=== PATIENT | female | born 1950 | race Asian ===

== ENCOUNTER 2017-01-18 06:17 | Day surgery (SDC) | payer OTHER ==
[2017-01-16 15:33] VITALS: BMI 19.6
[2017-01-18] MEDS ORDERED: CYCLOPENTOLATE HCL 1% OPHTH SOLN 2 ML BOTTLE ONE (06:28)
[2017-01-18] MEDS ORDERED: FLURBIPROFEN 0.03% OPHTH SOLN 2.5 ML BOTTLE ONE (06:28)
[2017-01-18] MEDS ORDERED: TROPICAMIDE 1% OPHTH SOLN 15 ML BOTTLE ONE (06:28)
[2017-01-18] MEDS ORDERED: CIPROFLOXACIN 0.3% EYE DROPS 5 ML BOTTLE ONE (06:28)
[2017-01-18] MEDS ORDERED: PHENYLEPHRINE 2.5% OPHTH SOLN 15 ML BOTTLE ONE (06:28)
[2017-01-18] MEDS ORDERED: CIPROFLOXACIN HCL 0.3% OPHTH 2.5ML BOTTLE OS ONE (07:20)
[2017-01-18] MEDS ORDERED: CYCLOPENTOLATE HCL 1% OPHTH SOLN 2 ML BOTTLE OS ONE (07:20)
[2017-01-18] MEDS ORDERED: TROPICAMIDE 1% OPHTH SOLN 15 ML BOTTLE OS ONE (07:20)
[2017-01-18] MEDS ORDERED: FLURBIPROFEN 0.03% OPHTH SOLN 2.5 ML BOTTLE OS ONE (07:20)
[2017-01-18] MEDS ORDERED: PHENYLEPHRINE 2.5% OPHTH SOLN 15 ML BOTTLE OS ONE (07:20)
[2017-01-18] MEDS ORDERED: EPINEPHrine/PF 1 MG/1 ML (1:1,000) AMPULE ONE (07:24)
[2017-01-18] MEDS ORDERED: LIDOCAINE HCL 2% JELLY (5 ML/TUBE) ONE (07:24)
[2017-01-18] MEDS ORDERED: VANCOMYCIN 500 MG VIAL (RESTRICTED TO ID ONLY) ONE (07:24)
[2017-01-18] MEDS ORDERED: POVIDONE-IODINE 5% OPHTHALMIC PREP 30 ML SOLUTION ONE (07:25)
[2017-01-18] MEDS ORDERED: WATER FOR INJ,STERILE 10 ML ONE (07:25)
[2017-01-18] MEDS ORDERED: LIDOCAINE HCL/PF 1% SDV 5ML VIAL ONE (07:25)
[2017-01-18] MEDS: TROPICAMIDE 1% OPHTH SOLN 15 ML BOTTLE OP SCH ×2 (07:30→07:35)
[2017-01-18] MEDS: FLURBIPROFEN 0.03% OPHTH SOLN 2.5 ML BOTTLE OP SCH ×2 (07:30→07:35)
[2017-01-18] MEDS: CYCLOPENTOLATE HCL 1% OPHTH SOLN 2 ML BOTTLE OP SCH ×2 (07:30→07:35)
[2017-01-18] MEDS: CIPROFLOXACIN HCL 0.3% OPHTH 2.5ML BOTTLE OP SCH ×2 (07:30→07:35)
[2017-01-18] MEDS: PHENYLEPHRINE 2.5% OPHTH SOLN 15 ML BOTTLE OP SCH ×2 (07:30→07:35)
[2017-01-18] MEDS ORDERED: TRYPAN BLUE 0.5 ML DISP.SYRIN ONE (07:31)
[2017-01-18] MEDS ORDERED: LIDOCAINE HCL 2% JELLY (5 ML/TUBE) TP ONE (07:58)
[2017-01-18] MEDS ORDERED: ACETAMINOPHEN 325 MG TABLET (FP) PO PRN (07:59)
[2017-01-18] MEDS ORDERED: MIDAZOLAM HCL 2 MG/2 ML SINGLE DOSE VIAL ONE (08:04)
[2017-01-18] MEDS ORDERED: POVIDONE-IODINE 5% OPHTHALMIC PREP 30 ML SOLUTION OS ONE (08:10)
[2017-01-18] MEDS ORDERED: LIDOCAINE HCL 1% PRESERVATIVE FREE - 30ML VIAL IO ONE (08:20)
[2017-01-18] MEDS ORDERED: BSS (NA/CA/MG/K) BALANCED SALT SOLUTION OPHTH SOLN 15 ML BOTTLE OS ONE (08:20)
[2017-01-18] MEDS ORDERED: CHONDROITIN SU A/HYALUR SOD 1 KIT IO ONE (08:20)
[2017-01-18] MEDS ORDERED: EPINEPHrine/PF 1 MG/1 ML (1:1,000) AMPULE IO ONE (08:26)
[2017-01-18] MEDS ORDERED: ACETAMINOPHEN 325 MG TABLET (FP) ONE (09:15)
[2017-01-18 09:44] VITALS: BP 123/72; PULSE 83; TEMP 98.2
--- NOTE | 2017-01-18 11:14 | SPEC ---
DATE OF OPERATION: DATE OF DICTATION: 01/18/2017 OPERATION: Phacoemulsification with posterior chamber intraocular lens implantation, left eye. Lens used [id number], 19.5 diopter power, serial no. .110. PREOPERATIVE DIAGNOSIS: Cataract, left eye. POSTOPERATIVE DIAGNOSIS: Cataract, left eye. SURGEON: Sarah Lorenzo MD ANESTHESIA: Topical MAC. COMPLICATIONS: None. PROCEDURE: The patient was brought to the operating room and correctly identified along with the operative site and the correct intraocular lens power. The patient was then prepped and draped in the usual sterile fashion including 5% Betadine solution in the conjunctival sac and an eyelid drape. An eyelid speculum was then placed in the eye. A paracentesis port was created and approximately 0.5 mL of preservative-free lidocaine was then injected into the eye. Viscoelastic was then injected to inflate the anterior chamber. A temporal clear corneal wound was created. A continuous circular capsulorrhexis was performed. The nucleus was then hydrodissected with BSS and removed with phacoemulsification. The remaining cortical material was irrigated and aspirated. Viscoelastic was injected to inflate the capsular bag and the intraocular lens was then implanted into the capsular bag. The remaining Viscoelastic was irrigated and aspirated from the eye. The IOL was noted to be well centered and completely covered by the anterior capsulorrhexis. Topical vancomycin was placed and the eye patched and shielded. All wounds were tested and found to be watertight. No suture was placed. The eye was then shielded. The patient was then discharged from the operating room in stable condition. SARAH LORENZO M.D. TORIN/[id number]
== END 2017-01-18 10:30 | disposition home or self-care (01) ==
LOC: JASU-SURG 06:17
PROVIDERS: ATTEND Ophthalmology
PROC: 08RK3JZ Replacement of Left Lens with Synthetic Substitute, Percutaneous Approach (ICD-10-PCS; principal; 2017-01-18 08:00)
DX: H26.9 Unspecified cataract (principal)

== ENCOUNTER 2018-04-29 19:40 | Emergency (ER) | payer OTHER ==
[2018-04-29] MEDS ORDERED: IBUPROFEN 600 MG TABLET (FP) PO ONE ×2 (21:26→21:42)
--- NOTE | 2018-04-30 00:26 | PDOC ---
History of Present Illness - General Chief Complaint: Head/Neck problem Stated Complaint: FALL HITTING KNEES AND LEFT SIDE OF FACE Time Seen by Provider: 04/29/18 21:01 History Source: Patient Exam Limitations: No Limitations - History of Present Illness Initial Comments: 04/30/18 00:14 Patient is a 67-year-old female with history of endometriosis here with complaints of left facial pain since about 7:30 PM tonight. Patient states she was walking on the road on her way to work when she tripped on uneven pavement landing face forward hitting her left face on the concrete. States fall she heard a crack and now has pain to the left side of her face and maxillary area. Pain is continuous sharp 8/10 unable to put her dentures in 2 to pain. There was no loss of consciousness, no dizziness, no nausea no vomiting. PMD: Dr. Viera PMHX: neg PMSOCHX: neg etoh, neg drug, neg cig ALL: NKDA GENERAL/CONSTITUTIONAL: [No fever or chills. No weakness. No weight change.] HEAD, EYES, EARS, NOSE AND THROAT: [No change in vision. No ear pain or discharge. No sore throat.] CARDIOVASCULAR: [No chest pain or shortness of breath.] RESPIRATORY: [No cough, wheezing, or hemoptysis.] GASTROINTESTINAL: [No nausea, vomiting, diarrhea or constipation. No rectal bleeding.] GENITOURINARY: [No dysuria, frequency, or change in urination.] MUSCULOSKELETAL: [No joint or muscle swelling or pain. No neck or back pain.] SKIN AND BREASTS: [No rash or easy bruising.] NEUROLOGIC: [No headache, vertigo, loss of consciousness, or loss of sensation.] PSYCHIATRIC: [No depression or anxiety.] ENDOCRINE: [No increased thirst. No abnormal weight change.] HEMATOLOGIC/LYMPHATIC: [No anemia, easy bleeding, or history of blood clots.] ALLERGIC/IMMUNOLOGIC: [No hives or skin allergy. No latex allergy.] GENERAL: [The patient is awake, alert, and fully oriented, in no acute distress. ] HEAD: [Normal with no signs of trauma.] EYES: [Pupils equal, round and reactive to light, extraocular movements intact, sclera anicteric, conjunctiva clear, nl EOMI, periorbital swelling and ecchymosis, tenderness inferior orbital left ENT: [Ears normal, nares patent, oropharynx clear without exudates. Moist mucous membranes.] NECK: [Normal range of motion, supple without lymphadenopathy, JVD, or masses.] LUNGS: [Breath sounds equal, clear to auscultation bilaterally. No wheezes, and no crackles.] HEART: [Regular rate and rhythm, normal S1 and S2 without murmur, rub.] ABDOMEN: [Soft, nontender, normoactive bowel sounds. No guarding, no rebound. No masses.] EXTREMITIES: [Normal range of motion, no edema. No clubbing or cyanosis. No cords, erythema, or tenderness.] NEUROLOGICAL: [Cranial nerves II through XII grossly intact. Normal speech, normal gait.] PSYCH: [Normal mood, normal affect.] SKIN: [Warm, Dry, normal turgor, no rashes or lesions noted.] Past History - Past Medical History Allergies/Adverse Reactions: Allergies Allergy/AdvReac Type Severity Reaction Status Date / Time No Known Allergies Allergy Verified 01/18/17 06:51 Home Medications: Ambulatory Orders Ibuprofen [Motrin] 600 mg PO TID #20 tablet 03/09/15 Atorvastatin Ca [Lipitor] 5 mg PO HS 01/16/17 Levothyroxine [Synthroid -] 25 mcg PO DAILY 01/16/17 Loratadine 10 mg PO DAILY PRN 01/16/17 Amox-Tr/K Cl [Augmentin - 875Mg Tablet] 1 tab PO BID #14 tablet 04/30/18 Ibuprofen [Motrin -] 600 mg PO QID #120 tablet 04/30/18 Anemia: No Asthma: No Cancer: No Cardiac Disorders: No CVA: No COPD: No CHF: No DVT: No Hypercholesterolemia: Yes Thyroid Disease: Yes (hypothyroid) - Surgical History Abdominal Surgery: Yes Cardiac Surgery: No Cholecystectomy: No Gastric Stapling: No - Suicide/Smoking/Psychosocial Hx Smoking History: Never smoked Have you smoked in the past 12 months: No Information on smoking cessation initiated: No Hx Alcohol Use: No Drug/Substance Use Hx: No Substance Use Type: None *Physical Exam - Vital Signs Last Vital Signs Temp Pulse Resp BP Pulse Ox 97.7 F 101 H 20 167/92 98 04/29/18 19:55 04/29/18 19:55 04/29/18 19:55 04/29/18 19:55 04/29/18 19:55 Moderate Sedation - Procedure Monitoring Vital Signs: Procedure Monitoring Vital Signs Temperature 97.7 F 04/29/18 19:55 Pulse Rate 101 H 04/29/18 19:55 Respiratory Rate 20 04/29/18 19:55 Blood Pressure 167/92 04/29/18 19:55 O2 Sat by Pulse Oximetry (%) 98 04/29/18 19:55 ED Treatment Course - RADIOLOGY Radiology Studies Ordered: Category Date Time Status FACIAL BONES CT W/O CONTRAST [CT] Stat CT Scan 04/29/18 21:[address] WITHOUT CONTRAST [CT] Stat CT Scan 04/29/18 21:25 Taken - Medications Given in the ED: ED Medications Discontinued Medications Generic Name Dose Route Start Last Admin Trade Name Romi PRN Reason Stop Dose Admin Ibuprofen 600 mg 04/29/18 21:26 04/29/18 21:54 Motrin - PO 04/29/18 21:27 600 mg ONCE ONE Administration Medical Decision Making - Medical Decision Making 04/30/18 00:14 Patient is a 67-year-old female with history of endometriosis here with complaints of left facial pain since about 7:30 PM tonight. Patient states she was walking on the road on her way to work when she tripped on uneven pavement landing face forward hitting her left face on the concrete. States fall she heard a crack and now has pain to the left side of her face and maxillary area. Pain is continuous sharp 8/10 unable to put her dentures in 2 to pain. There was no loss of consciousness, no dizziness, no nausea no vomiting. This was a mechanical fall will get CT head, C-spine and facial bones without fractures or bleed. Motrin 600 mg for pain 04/30/18 00:13 Patient Full Name: ALLEGRA PEREZ Patient Accession No: [id number] Patient : 1950 Reason for Exam: FALL Referring Physician: Patient Name: ANA DINH THIS IS A PRELIMINARY REPORT FROM [facility] DATE OF SERVICE: 2018-04-29 22:59:11 IMAGES: [id number] EXAM: HEAD CT WITHOUT CONTRAST HISTORY: Status post fall COMPARISON: None. FINDINGS: Left periorbital soft tissue swelling and frontal scalp swelling is noted. The ventricular system is midline and nondilated. The sulcal pattern is normal for the patient's age. There is no bleed, mass, extra-axial fluid collection or mass effect. No skull fracture or skull lesion is identified. The left maxillary sinus air-fluid level appears be due to a left orbital floor and left maxillary sinus fracture. The other visualized paranasal sinuses and mastoid air cells are clear. IMPRESSION: Left orbital floor and maxillary sinus fracture and left frontal scalp swelling without skull fracture or intracranial hemorrhage. One or more of the following dose reduction techniques were used: automated exposure control, adjustment of the mA and/or kV according to patient size, use of iterative reconstructive technique. THIS DOCUMENT HAS BEEN ELECTRONICALLY SIGNED Phoenix Cano MD 04/29/2018 23:59 JAZMYNE Alicia. Please call [facility] [phone] with questions. INTERPRETING RADIOLOGIST: Frankie Cano MD Electronically Signed: Apr 30, 2018 12:00AM EST Patient Full Name: ALLEGRA PEREZ Patient Accession No: [id number] Patient : 1950 Reason for Exam: FALL Referring Physician: CHEVY FOX Patient Name: ANA DINH THIS IS A PRELIMINARY REPORT FROM [facility] DATE OF SERVICE: 2018-04-29 22:53:17 IMAGES: [id number] EXAM: CERVICAL SPINE CT W/O CONTR HISTORY: Status post fall COMPARISON: None. FINDINGS: There is no fracture, subluxation, prevertebral soft tissue swelling. There are mild to moderate degenerative changes. The lung apices are clear. Please refer to separate report of CT facial bones for left maxillary sinus air-fluid level description. IMPRESSION: No cervical and spinal fracture. One or more of the following dose reduction techniques were used: automated exposure control, adjustment of the mA and/or kV according to patient size, use of iterative reconstructive technique. THIS DOCUMENT HAS BEEN ELECTRONICALLY SIGNED Phoenix Cano MD 04/30/2018 00:01 JAZMYNE Alicia. Please call [facility] [phone] with questions. INTERPRETING RADIOLOGIST: Frankie Cano MD Electronically Signed: Apr 30, 2018 12:02AM EST 04/30/18 00:40 Patient has pain relief. CT scan discussed with the patient I discussed the physical exam findings, ancillary test results and final diagnoses with the patient. I answered all of the patient's questions. The patient was satisfied with the care received and felt comfortable with the discharge plan and treatment plan. The Patient agrees to follow up with the primary care physician within 24-72 hours. *DC/Admit/Observation/Transfer Diagnosis at time of Disposition: Orbital floor fracture Qualifiers: Encounter type: initial encounter Fracture type: closed Laterality: left Qualified Code(s): S02.32XA - Fracture of orbital floor, left side, initial encounter for closed fracture - Discharge Dispostion Disposition: HOME Condition at time of disposition: Stable - Referrals Referrals: Alex Viera MD [Primary Care Provider] - Kleber Oscar MD [Staff Physician] - Jamey Kelly MD [Staff Physician] - - Patient Instructions Additional Instructions: Your Discharge Instructions: You must call primary care physician within 24 hours to arrange follow-up. Return to the Emergency Department with any new, persistent or worsening symptoms, for fever, chills, SOB, dizziness or any other concerning changes that may occur. You must follow-up with ENT Dr. Oscar and with ophthalmology Dr. Kelly in 24 hours. Do not blow your nose or sneeze to your nose. Continue ice packs every 20 minutes interval for 2 days. - Post Discharge Activity Forms/Work/School Notes: Back to Work
[2018-04-30] MEDS ORDERED: AMOX TR/POT CLAV 875MG/125MG TABLETS (FP) PO ONE (00:44)
[2018-04-30] MEDS ORDERED: AMOX TR/POT CLAV 875MG/125MG TABLETS (FP) ONE (01:04)
[2018-04-30 01:29] VITALS: BP 155/90; PULSE 91; TEMP 98.5
== END 2018-04-30 01:25 | disposition home or self-care (01) ==
LOC: JER 19:40
DX: S02.32XA Fracture of orbital floor, left side, initial encounter for closed fracture (principal); W01.0XXA Fall on same level from slipping, tripping and stumbling without subsequent striking against object, initial encounter; Y93.01 Activity, walking, marching and hiking; Y92.414 Local residential or business street as the place of occurrence of the external cause; Y99.8 Other external cause status; E78.00 Pure hypercholesterolemia, unspecified; E03.9 Hypothyroidism, unspecified
CPT/HCPCS: 70450-TC; 70486-TC; 72125-TC; 99281-25